=== PATIENT | female | born 2000 | race Caucasian/White ===

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

== ENCOUNTER → 2020-12-13 | Outpatient (CLI) | payer SELFPAY | LOC: LAB 19:10 | DX: R35.0 Frequency of micturition (principal) ==

== ENCOUNTER → 2022-05-17 | Outpatient (CLI) | payer BC ==
[2022-05-17 15:43] LABS: BASO # 0.05 K/mm3 (0.02-0.10); EOS # 0.02 K/mm3 (0.04-0.40); EOS % 0.3 % (1.0-5.0); HEMATOCRIT 43.5 % (37.0-47.0); HEMOGLOBIN 13.8 g/dL (12.5-16.0); LYMPH# 2.17 K/mm3 (1.50-4.00); MEAN CELL VOLUME 88 fl (78-100); MEAN CORPUSCULAR HEMOGLOBIN 28 pg (27-31); MEAN CORPUSCULAR HGB CONC 32 g/dL (33-37); MEAN PLATELET VOLUME 8.8 fl (7.4-10.4); MONO # 0.61 K/mm3 (0.20-0.80); NEU # 5.14 K/mm3 (1.40-6.50); PLATELET COUNT 368 K/mm3 (130-400); RED BLOOD COUNT 4.94 M/mm3 (4.10-5.30); RED CELL DISTRIBUTION WIDTH 12.3 % (11.5-14.5)
[2022-05-17 15:55] LABS: ALBUMIN 4.2 g/dL (3.5-5.0); POTASSIUM 4.2 mmol/L (3.5-5.1)
[2022-05-17 15:56] LABS: CALCIUM 9.4 mg/dL (8.3-10.5)
[2022-05-17 15:58] LABS: TOTAL PROTEIN 7.2 g/dL (6.4-8.3)
[2022-05-17 15:59] LABS: TOTAL BILIRUBIN 0.4 mg/dL (0.2-1.2)
== END ==
LOC: LAB 15:20
PROVIDERS: Physician Assistant
DX: Z00.00 Encounter for general adult medical examination without abnormal findings (principal); Z13.220 Encounter for screening for lipoid disorders; Z13.1 Encounter for screening for diabetes mellitus; Z13.29 Encounter for screening for other suspected endocrine disorder; K90.9 Intestinal malabsorption, unspecified; N92.6 Irregular menstruation, unspecified; N89.8 Other specified noninflammatory disorders of vagina

== ENCOUNTER → 2022-10-07 | Outpatient (CLI) | payer BC | LOC: RAD 18:29 | DX: M25.472 Effusion, left ankle (principal); M25.572 Pain in left ankle and joints of left foot ==

== ENCOUNTER → 2023-01-23 | Outpatient (CLI) | payer BC | LOC: RAD 18:07 | DX: M25.572 Pain in left ankle and joints of left foot (principal) ==

== ENCOUNTER → 2024-02-23 | Outpatient (CLI) | payer BC | LOC: RAD 17:07 | DX: M79.89 Other specified soft tissue disorders (principal) ==